=== PATIENT | female | born 1985 | race Caucasian/White ===

== ENCOUNTER 2019-07-31 12:18 | Emergency (ER) | payer OTHER ==
[~2019-07-31] VITALS: Ht 165.1 cm; Wt 70.3 kg
[2019-07-31 12:19] VITALS: Ht 165.1 cm; Wt 70.3 kg
[2019-07-31 13:11] VITALS: BP 113/75
== END 2019-07-31 13:11 | disposition other institution (70) ==
LOC: ED 12:18
DX: S40.211A Abrasion of right shoulder, initial encounter (principal); S80.211A Abrasion, right knee, initial encounter; X58.XXXA Exposure to other specified factors, initial encounter; Y93.89 Activity, other specified; Y92.89 Other specified places as the place of occurrence of the external cause; Y99.8 Other external cause status
CPT/HCPCS: 90715

== ENCOUNTER 2019-07-31 12:18 | Emergency (ER) | payer OTHER | END 2019-07-31 13:11 | disposition other institution (70) | LOC: ED 12:18 | DX: Z02.89 Encounter for other administrative examinations (principal) ==